=== PATIENT | female | born 1970 | race Two or more races ===

== ENCOUNTER → 2024-07-03 | Outpatient (CLI) | payer MEDICAID, SELFPAY ==
--- NOTE | 2024-07-03 | XR_ITS ---
Examination: Lumbar spine 3 views TECHNIQUE: AP lateral coned lateral lower lumbar spine 3 views EXAM: [place] 24 1636 hours INDICATIONS: Patient fell 3 days ago with injury to the lower back, lower back pain. FINDINGS: Adequate alignment lumbar bodies No lumbar fracture Intact pedicles No cortical bone destruction No significant lumbar disc narrowing IMPRESSION: No lumbar fracture
== END | disposition home or self-care (01) ==
LOC: CDIM 12:03
PROVIDERS: Referring Provider Obstetrics & Gynecology; Visit Provider Obstetrics & Gynecology
DX: S39.92XA Unspecified injury of lower back, initial encounter (principal); W19.XXXA Unspecified fall, initial encounter
CPT/HCPCS: 72100